=== PATIENT | male | born 1955 | race Caucasian/White ===

== ENCOUNTER 2018-03-24 14:06 | Emergency (ER) | payer BC, SELFPAY ==
[2018-03-24 14:07] VITALS: BP 151/97; PULSE 83; RESP 18; TEMP 36.6; O2SAT 98; BMI 22.8
--- NOTE | 2018-03-24 14:21 | RAD_ITS ---
STUDY: X-RAY - LUMBAR SPINE REASON FOR EXAM: Male, 62 years old. PAIN W/ ROM. ALSO C/O LT HIP PAIN. UNABLE TO TOLERATE LT LAT IMAGE. HX TRAUMA TECHNIQUE: 4 view(s) of the lumbar spine were obtained. COMPARISON: None FINDINGS: Normal lumbar lordosis. There are left transverse process fractures at L1, L2, L3 and L4 There is multilevel endplate spondylosis of the lumbar vertebrae. There is multi-level degenerative disc disease with multi-level disc space narrowing. The soft tissue structures are unremarkable. RAD/L/S Spine Min 4 Views IMPRESSION: Left transverse process fractures Electronically Signed: Krystal Kingston MD at 14:54 EDT Tel , Service support ,
[2018-03-24] MEDS: HYDROcodone Bitartrate/Apap 5/325 Tablet PO (14:57)
--- NOTE | 2018-03-24 15:29 | ED.DCSUM_ITS ---
- ER Visit Summary Date of Service: 03/24/18 Chief Complaint: [] Lumbar back pain after fall History of Present Illness: The patient is a 62 M [] nancis yesterday was on a scaffold about 15 feet in the air when he inadvertently fell he has some pain to the left paralumbar musculature. He has no head neck chest or abdominal pain no difficulty with bowel bladder habits which have been normal no difficulty with extremity movement and no complaints except for pain to this part of his back he denies any past history Physical Examination: [] Is resting comfortably prefers to stand he is in no distress his head and neck are unremarkable nontender chest abdomen nontender the T-spine is nontender his a vague pain to the left lumbar back pain really to the left paralumbar area his pelvis is stable to palpation he is able to stand and walk without difficulty fact he can walk heel raise toe raise knee bend without any difficulty neurologic exam is normal Test Results: [] Emergency Department Course and Treatment: [] x-rays of lumbar spine are obtained and show a transverse process fracture L1-3 and 4 on the left, see that report, I have explained all the above the patient he does not wish to have any other evaluation from the emergency department, I recommend we check a UA, CT lumbar spine, indicates his voiding has been normal without blood, he does not wish to have any further studies done in the emergenc y department, he would prefer to follow-up as an outpatient, at this time he will be referred to [facility] orthopedic service for further management of the transverse process fracture, Naprosyn, [place] [address] as rescue medicine off work and he will return for change in symptoms, if it provides the UA we will check that Treatment Plan: [] Disposition: [] Stable home Impression: [] Fall with multiple lumbar spine transverse process fractures This note was generated with [employer] dictation software. It may contain incorrect words, spelling, and punctuation that were not noted in review of the chart prior to signing ED Disposition - Plan for ED Patient: Chief Complaint: Back Instructions: ED Low Back Pain Injury, ED Fx Transverse Process Prescriptions: Hydrocodone Bitart/Apap 5-325 [[place] 5MG-325MG] 1 tab PO Q4H PRN PRN 2 Days #10 tab PRN Reason: Pain Naproxen [Naprosyn] 500 mg PO BID PRN #20 tab Referrals: Andrea Phillip [NON-STAFF] - Care Physician,No Primary [Primary Care Provider] - Additional Instructions: Please call [facility] orthopedics to be seen in follow-up by their back specialist
--- NOTE | 2018-03-24 15:29 | ED.DEP ---
ED Disposition - Plan for ED Patient: Chief Complaint: Back Instructions: ED Low Back Pain Injury, ED Fx Transverse Process Prescriptions: Hydrocodone Bitart/Apap 5-325 [[place] 5MG-325MG] 1 tab PO Q4H PRN PRN 2 Days #10 tab PRN Reason: Pain Naproxen [Naprosyn] 500 mg PO BID PRN #20 tab Referrals: Care Physician,No Primary [Primary Care Provider] - Andrea Phillip [NON-STAFF] - Additional Instructions: Please call [facility] orthopedics to be seen in follow-up by their back specialist
--- NOTE | 2018-03-24 15:33 | DCINST.ED_ITS ---
ED Disposition - Plan for ED Patient: Chief Complaint: Back Instructions: ED Low Back Pain Injury, ED Fx Transverse Process Prescriptions: Hydrocodone Bitart/Apap 5-325 [[place] 5MG-325MG] 1 tab PO Q4H PRN PRN 2 Days #10 tab PRN Reason: Pain Naproxen [Naprosyn] 500 mg PO BID PRN #20 tab Referrals: Care Physician,No Primary [Primary Care Provider] - Andrea Phillip [NON-STAFF] - Additional Instructions: Please call [facility] orthopedics to be seen in follow-up by their back specialist
[2018-03-24 15:35] LABS: Bacteria 0 SEEN /hpf (None Seen); Red Blood Cells-Urine 0 SEEN /hpf (0-5); Squamous Epithelial Cells - UA 0 SEEN /hpf (0-5)
[2018-03-24 15:45] LABS: Color, Urine Yellow (Yellow); Glucose, Dipstick Normal (Normal); Ketone-Dipstick Negative (Negative); Leukocyte Esterase-Dipstick 25 /ul (Negative); Nitrite-Dipstick Negative (Negative); Occult Blood-Urine 10 /ul (Negative); Protein-Dipstick 30 mg/dl (Negative); Specific Gravity, Urine 1.015 (1.002-1.030); Urine Bilirubin Dipstick Negative (Negative); Urine Clarity Clear (Clear); Urine Urobilinogen Normal (Normal)
--- NOTE | 2018-03-24 15:47 | DCINST.ED_ITS ---
ED Disposition - Plan for ED Patient: Chief Complaint: Back Instructions: ED Low Back Pain Injury, ED Fx Transverse Process Prescriptions: Hydrocodone Bitart/Apap 5-325 [[place] 5MG-325MG] 1 tab PO Q4H PRN PRN 2 Days #10 tab PRN Reason: Pain Naproxen [Naprosyn] 500 mg PO BID PRN #20 tab Naproxen [Naprosyn] 500 mg PO BID PRN #20 tab Referrals: Andrea Phillip [NON-STAFF] - Care Physician,No Primary [Primary Care Provider] - Additional Instructions: Please call [facility] orthopedics to be seen in follow-up by their back specialist
[2018-03-24 16:06] LABS: White Blood Cells 5-10 SEEN /hpf (0-5)
[2018-03-24 16:07] LABS: Hyaline Cast 0 SEEN /lpf (0-5); Mucous, Urine 1+ /hpf (<or=2+)
[2018-03-24 16:30] VITALS: RESP 14
== END 2018-03-24 16:30 | disposition home or self-care (01) ==
LOC: ED 14:48
PROVIDERS: Emergency Provider Emergency Medicine
DX: S32.019A Unspecified fracture of first lumbar vertebra, initial encounter for closed fracture (principal); S32.029A Unspecified fracture of second lumbar vertebra, initial encounter for closed fracture; S32.039A Unspecified fracture of third lumbar vertebra, initial encounter for closed fracture; S32.049A Unspecified fracture of fourth lumbar vertebra, initial encounter for closed fracture; W17.89XA Other fall from one level to another, initial encounter; Y93.9 Activity, unspecified; Y92.89 Other specified places as the place of occurrence of the external cause; Y99.9 Unspecified external cause status
CPT/HCPCS: 72110; 81001; 99283; A4216

== ENCOUNTER → 2022-04-28 | Outpatient (CLI) | payer MEDICARE, SELFPAY ==
--- NOTE | 2022-04-28 10:29 | EKG12_ITS ---
Test Reason : PREOP Blood Pressure : / mmHG Vent. Rate : 081 BPM Atrial Rate : 081 BPM P-R Int : 112 ms QRS Dur : 130 ms QT Int : 394 ms P-R-T Axes : 082 -25 042 degrees QTc Int : 457 ms Normal sinus rhythm Right bundle branch block Abnormal ECG Confirmed by HERNÁN READ, KASEY ([id number]), videotape editor FRED HENNESSY ([id number]) on 04/29/2022 9:08:19 AM Referred By: Anjel Alexander Confirmed By:KASEY JIM MD
[2022-04-28 11:30] LABS: Hematocrit 43.4 % (40-54); Hemoglobin 14.3 g/dL (13.0-16.5); Mean Corp Hgb Conc 32.9 g/dL (32-36); Mean Corpuscular Hgb 29.3 pg (27.0-32.0); Mean Corpuscular Volume 88.9 fL (80-94); Mean Platelet Vol. 10.8 fl (6.2-12.0); Platelet Count 181 K/mm3 (150-450); RBC Distribution Width CV 14.1 % (11.6-14.6); Red Blood Count 4.88 M/mm3 (4.6-6.2); White Blood Count 6.2 K/mm3 (4.4-11.0)
[2022-04-28 11:58] LABS: Anion Gap 2 (5-15); BUN 18 mg/dL (7-18); Calcium,Total 9.8 mg/dL (8.5-10.1); Chloride 106 mmol/L (98-107); Creatinine, Serum 0.95 mg/dL (0.70-1.30); EST Glomerular Filtration Rate 84 mL/min (>60); Est Glom Filt Rate - Afr Amer 102 mL/min (>60); Glucose 110 mg/dL (74-106); Potassium 4.5 mmol/L (3.5-5.1); Sodium Level 138 mmol/L (136-145)
== END | disposition home or self-care (01) ==
PROVIDERS: Referring Provider Otolaryngology; Visit Provider Otolaryngology
DX: Z01.810 Encounter for preprocedural cardiovascular examination (principal); Z01.812 Encounter for preprocedural laboratory examination
CPT/HCPCS: 36415; 80048; 85027; 93005